=== PATIENT | female | born 1985 | race Caucasian/White ===

== ENCOUNTER 2017-01-20 20:55 | Emergency (ER) | payer BC | END 2017-01-21 00:20 | disposition home or self-care (01) | LOC: ER 20:55 | DX: R07.81 Pleurodynia (principal); J45.909 Unspecified asthma, uncomplicated; Z98.890 Other specified postprocedural states; F17.210 Nicotine dependence, cigarettes, uncomplicated | CPT/HCPCS: 81025; 99283-25 ==